=== PATIENT | male | born 1950 | race African-American/Black ===

== ENCOUNTER 2025-02-18 07:11 | Day surgery (SDC) | payer MEDICARE, MEDICAID ==
[2025-02-18] VITALS (14 sets, daily range): BP systolic 94–115; BP diastolic 51–61; PULSE 50–76; RESP 14–18; TEMP 97.6; O2SAT 96–98
[~2025-02-18] VITALS: Ht 167.6 cm; Wt 42.6 kg
[2025-02-18] MEDS ORDERED: LATA2.5D7 EACHEYE (07:36)
--- NOTE | 2025-02-18 09:32 | PROGRESS NOTE ---
H&P - Interval Note Providers to CC ~ Patient examined and condition: Yes Interval changes as follows: Paper H and P on chart today. Here for PET postive small LN left axilla, H/O r lung/bronchus cancer and xRT. Risks benefits alt d/w pt and informed consent disclosed. Lidocaine only needed. JUAN MANUEL GOMES MD Feb 18, 2025 09:32
--- NOTE | 2025-02-18 09:33 | PROGRESS NOTE ---
Progress Note - Angio Providers to CC ~ Angio Progress Note: L axillary small approx 10mm LN biopsied (difficult, near axillary vein). Sent to lab. No immediate complications. EBL less than 2cc. Dictated. JUAN MANUEL GOMES MD Feb 18, 2025 09:33
--- NOTE | 2025-02-22 18:20 | PATHOLOGY REPORT ---
[facility] [address] [place] [address] NON-SAW MAN CYTOLOGY REPORT CaseNumber: [id number] Surgeon:Dmitri Sumner M.D. CLINICAL INFORMATION CLINICAL INFORMATION: History of right lung cancer stage 1A2. Non-small cell radiation treatment PET scan positive hypermetabolic left axilla lymph node. DIAGNOSIS DIAGNOSIS: LYMPH NODE, LEFT AXILLA; FINE NEEDLE ASPIRATION - VERY SPARSE ATYPICAL CELLS NOTED. COMMENT NOTE: I favor reactive change, but I cannot completely exclude neoplasia. The findings should be vie wed as non-diagnostic. Dr. Norberto Hendrix has reviewed this case and agrees with the interpretation. MICROSCOPIC DESCRIPTION MICROSCOPIC DESCRIPTION: One Pap stained double cytospin slide and four Pap stained smear slides are examined. Present are mainly blood elements. There is a microfocus on one slide that has slightly inc reased numbers of lymphocytes suggestive of lymph node sampling. Admixed with this, are some atypical epithelioid cells. Cytoplasm is fragile and eosinophilic and abundant. Nuclei are enlarged with slig ht variation in morphology, and contain prominent nucleoli, but N:C ratio appears low. (st) GROSS DESCRIPTION GROSS DESCRIPTION: Received labeled with the patient's name, number, and "L axilla" are four smeared slides which are stained with Pap stain and one bottle of cytostat red. The cytostat red is clear and has a total volume of 10 mL. One double cytospin slide is prepared. There is insufficient material for a cell block. (meb) Electronically signed by: Dima Buckner M.D. 02/22/2025 5:40:00 PM
--- NOTE | 2025-03-10 18:44 | RADIOLOGY REPORT ---
Ultrasound-guided left axillary lymph node biopsy HISTORY: Right lung cancer. Slight PET positive activity on left axillary lymph node. After explanation of the above procedure and informed consent, a surgical timeout was performed. A small approximate 10 mm mixed echogenicity left axillary nodule was localized near a blood vessel. Due to the tenuous nature of the location FNA only was performed. Several FNA passes were made with samples placed on slides and Carbo wax. There were no immediate complications. Estimated blood loss was less than 1 cc. Post biopsy ultrasound scanning with color Doppler imaging demonstrated no evidence of hematoma or extravasation. There were no immediate complications. IMPRESSION: FNA of left axillary lymph node. See above.
== END 2025-02-18 10:40 | disposition home or self-care (01) ==
LOC: SSTAY O 07:11
PROVIDERS: ATTEND Radiology Diagnostic Radiology
DX: R59.0 Localized enlarged lymph nodes (principal); C34.11 Malignant neoplasm of upper lobe, right bronchus or lung
CPT/HCPCS: 10005; 38505; 88173